=== PATIENT | male | born 1980 ===

== ENCOUNTER → 2023-09-06 06:16 | Day surgery (SDC) | payer OTHER, SELFPAY | LOC: GI 06:16 | PROVIDERS: ATTENDING PHYSICIAN Internal Medicine | DX: K52.3 Indeterminate colitis (principal); K50.80 Crohn's disease of both small and large intestine without complications; K63.89 Other specified diseases of intestine; K62.89 Other specified diseases of anus and rectum; K64.4 Residual hemorrhoidal skin tags | CPT/HCPCS: 45380; 88305; 88342 ==

== ENCOUNTER → 2024-04-09 09:58 | Outpatient (REF) | payer OTHER, SELFPAY | LOC: MRI 3T 09:58 | PROVIDERS: ATTENDING PHYSICIAN Internal Medicine; FAMILY PHYSICIAN Family Medicine | DX: K50.80 Crohn's disease of both small and large intestine without complications (principal) | CPT/HCPCS: 72197; 74183; A9575 ==

== ENCOUNTER 2024-09-02 06:35 | Day surgery (SDC) | payer OTHER, SELFPAY | END 2024-09-02 11:27 | disposition home or self-care (01) | LOC: GI 06:35 | PROVIDERS: ATTENDING PHYSICIAN Internal Medicine | DX: Z12.11 Encounter for screening for malignant neoplasm of colon (principal); K50.80 Crohn's disease of both small and large intestine without complications; K52.9 Noninfective gastroenteritis and colitis, unspecified; K63.9 Disease of intestine, unspecified | CPT/HCPCS: 45380; 88305 ==